=== PATIENT | female | born 1985 | race Caucasian/White ===

== ENCOUNTER 2018-02-18 19:31 | Emergency (ER) | payer MEDICAID ==
[~2018-02-18] VITALS: Ht 165.1 cm; Wt 123.3 kg
[~2018-02-18 19:31] MED LIST: INDO25CA PO; RIZA5TAB2 PO
[2018-02-18] MEDS ORDERED: KETOROLAC 30 MG/1 ML IVPush ONE (20:00)
[2018-02-18] MEDS ORDERED: DIPHENHYDRAMINE 50 MG/ML, 1ML IVPush ONE (20:00)
[2018-02-18] MEDS ORDERED: SODIUM CHLORIDE 0.9% 1,000ML IVBOLUS ONE (20:00)
[2018-02-18] MEDS ORDERED: METOCLOPRAMIDE 5 MG/ML, 2ML IVPush ONE (20:00)
[2018-02-18] MEDS ORDERED: SODIUM CHLORIDE FLUSH 10ML SYR IVF ONE (20:00)
[2018-02-18] MEDS ORDERED: METOCLOPRAMIDE 5 MG/ML, 2ML ONE (20:17)
[2018-02-18] MEDS ORDERED: DIPHENHYDRAMINE 50 MG/ML, 1ML ONE (20:17)
[2018-02-18] MEDS ORDERED: KETOROLAC 30 MG/1 ML ONE (20:17)
[2018-02-18 21:13] VITALS: BP 106/54
== END 2018-02-18 21:33 | disposition home or self-care (01) ==
LOC: ED 21:27
DX: G43.909 Migraine, unspecified, not intractable, without status migrainosus (principal); R11.10 Vomiting, unspecified
CPT/HCPCS: 96361; 96374; 96375; 99284; J1200; J1885; J2765; J7030